=== PATIENT | female | born 1990 | race Caucasian/White ===

== ENCOUNTER 2024-05-13 00:09 | Emergency (ER) | payer OTHER, SELFPAY ==
[2024-05-13 00:14] VITALS: BP 125/75
--- NOTE | 2024-05-13 01:17 | ED.GENMED ---
History of Present Illness
General
Chief Complaint: Headache
Source: patient
Exam Limitations: none
Time Seen by Provider: 05/13/24 00:49
History of Present Illness
History of Present Illness:
This is a 33 year old female that comes in with c/o a Migraine since last Thursday. States that she does not have a history of headaches. States that her headache is constant. States that she went to [facility] on Thursday and they gave her
Benadryl, Reglan, Toradol and Valium. Patient also saw her PCP and he gave her Imitrex and this is not helping. States that she is nauseated and had diarrhea. States that she also feels dizzy like she is spinning. States that she also had some
chest discomfort today. Denies any fever, chills, SOB, abd pain, vomiting, urinary burning.
Past History
Past History
ED Past Medical History: None; Negative Asthma, HTN, Hypercholesterolemia or NIDDM
ED Past Surgical History: , Tonsilectomy and Other (Lesion removed from around Colon Benign)
Social History
Tobacco: Smoker
Alcohol: None
Personal: Single
Living: with family
Employment: Employed
Review of Systems
Review of Systems
All Other Systems: ROS reviewed and negative except as documented in HPI and ROS
Constitutional: Reports no symptoms; Denies fever or chills
EENT: Reports no symptoms
Respiratory: Reports no symptoms; Denies cough or trouble breathing
Cardiac: Reports chest pain
ABD/GI: Reports nausea and diarrhea; Denies abdominal pain or vomiting
: Reports no symptoms; Denies dysuria, frequency or urgency
Musculoskeletal: Reports no symptoms
Skin: Reports no symptoms
Neurological: Reports dizzy and headache
Psychiatric: Reports no symptoms
Phy Exam
General Physical Exam
General Presentation: no apparent distress
General age: appears stated age
General Skin: warm and dry
General Habitus: normal
General Mental: alert
General Hydration: appears well hydrated
ENT Exam
ENT Exam: TM's normal, pharynx normal and neck supple
Eye Exam
Eye Exam: EOMI
Cardiovascular Exam
Cardiovascular Exam: regular rate/rhythm, no edema, no murmur and normal peripheral pulses
Pulmonary Exam
Pulmonary Exam: lungs clear, no respiratory distress, no rales, chest non tender, no crackles, no rhonchi, no wheezing and no cough
Gastrointestinal Exam
Gastrointestinal Exam: normal bowel sounds, non tender, soft, no organomegaly, no pulsatile mass and non distended
Musculoskeletal Exam
Musculoskeletal Exam: full ROM and no edema
Skin Exam
Skin Exam: normal color, warm/dry, no rash and no petechia
Psychiatric Exam
Psychiatric Exam: normal mood/affect
Course
Orders/Labs/Results
Orders:
Orders
05/13/24 01:15
0.9% Sodium Chloride 1000 ml [Nss] 1,000 ml IV BOLUS
Acetaminophen [Tylenol] 1,000 mg PO NOW STA
Dexamethasone Sod Phosphate [Decadron] 20 mg IV NOW STA
Diphenhydramine [Benadryl] 25 mg IV NOW STA
Ketorolac [Toradol] 30 mg IV NOW STA
Prochlorperazine [Compazine] 5 mg IV NOW STA
05/13/24 01:16
Test Result ONCE
05/13/24 01:17
CT Head W/o Iv Contrast Urgent
Comment:
Reason For Exam: Headache since last Thursday
05/13/24 01:20
Electrocardiogram (*1) Urgent
Reason for Study: Chest Pain
EKG- Treatment ONCE
05/13/24 01:27
COVID-19 Antigen Urgent
Source: Nasal Swab
Complete Blood Count/With Diff Urgent
Comprehensive Metabolic Panel Urgent
HCG, Serum Qualitative Screen Urgent
Troponin I Urgent
Abnormal Lab Results
05/13/24
01:27
WBC 10.9 H 10^3/uL
(4.8-10.8)
RBC 3.69 L 10^6/uL
(4.20-5.40)
Hgb 11.8 L g/dL
(12.0-16.0)
Hct 33.7 L %
(37.0-47.0)
MCH 32.0 H pg
(27.0-31.0)
Absolute Lymphs (auto) 3.5 H 10^3/uL
(1.2-3.4)
Absolute Monos (auto) 0.8 H 10^3/uL
(0.1-0.6)
05/13/24 01:27
05/13/24 01:27
H/H slightly low. HCG negative. COVID negative. Troponin <0.012
Vital Signs
Initial and Last Documented VS:
Initial Vital Signs
Temp Pulse Resp BP Pulse Ox
98.6 F 85 17 125/75 99
05/13/24 00:14 05/13/24 00:14 05/13/24 00:14 05/13/24 00:14 05/13/24 00:14
Last Documented Vital Signs
Temp Pulse Resp BP Pulse Ox
98.6 F 70 18 109/70 99
05/13/24 00:14 05/13/24 02:53 05/13/24 02:53 05/13/24 02:53 05/13/24 02:53
MDM/Problems Addressed
Differential Diagnosis Includes:
Migraine,
MDM/Problems Addressed:
This is a 33 year old female that comes in with c/o migraine. States that she doesn't have a history of Migraines but she has had a headache since Thursday and it is constant. Patient was seen at [facility] on Thursday. States that she was also
seen by her PCP.
Will get labs, Medicate for headache pain and CT scan.
Back into see patient. Explained that the CT of her head is normal. Blood work is normal and she is negative for COVID. Patient states that she is feeling better. Explained that she was given a steroid and this will stay in her system for a few
days. This will help decrease any inflammation. Patient can use Tylenol and Ibuprofen for pain. Patient to follow up with the family doctor. Return with any concerns.
Chronic conditions affecting care:
NA
Acute Exacerbation and/or Progression of Chronic Illness:
NA
*Radiology
Radiology exam reviewed: radiology read reviewed (CT head night hawk- No acute intracranial abnormality. NO acute territorial infarct, hemorrhage, mass effect, or midline shift. )
*Pulse Oximetry
Patient hypoxic: no
*EKG
Interpreted by ED Provider?: Yes
Heart Rate: 62
Rate: normal
Rhythm: sinus arrhythmia
[place]: normal axis
Interval: normal interval
QRS Pattern: normal QRS
Ischemia: T-wave inversion (aVR, V1, V2, Checked by Dr. Marshall)
*Tug Hand Interpretation
Rate: Tug Hand- N/A
*Critical Care Note
Total Time (30-74mins, 75-104mins- exclusive of procedures): Not Applicable
ED Attending Note
-
Portions of this chart may have been created with voice recognition software.� Occasional wrong word or��sound alike� substitutions may have occurred due to the inherent limitations of voice recognition software.
Discharge Plan
Departure
Patient Disposition: Home (Routine Discharge)
Date of Disposition: 05/13/24
Time of Disposition: 02:49
Patient with high blood pressure during this ER visit?: No
Condition: Good
Covid-19: Not Applicable
Discharge Problem:
Headache
Instructions: Headache, Adult (DC)
Prescriptions:
No Action
No Meds [No Current Medications]
Referrals:
Jagjit Moreno DO [Family Provider] - Call in 1-3 days for appt
Stand Alone Forms: Return to Work
Activity Restrictions/Additional Instructions:
As discussed, your CT of the head is normal and your blood work is normal. You are negative for COVID. Please increase your water intake to 8-8oz glasses daily. You may Use Tylenol and Ibuprofen for pain. Follow up with the family doctor for
recheck. You have been given a steroid here that will help decrease any inflammation and decrease the headache pain. You may also want to try and over the counter Zyrtec or Claritin as this could also be allergy related. IF YOU HAVE ANY OTHER
CONCERNS PLEASE RETURN TO THE EMERGENCY ROOM.
Interventions
Interventions:
*Risk Screen - Suicide Last Done: 05/13/24 00:14
*General Assessment Last Done: 05/13/24 00:14
*Neglect/Abuse Screening Last Done: 05/13/24 00:14
ED- Fall Risk Assessment Last Done: 05/13/24 02:31
*ED COVID-19 Vaccine History Last Done: 05/13/24 00:14
ED- Neurological Assessment Last Done: 05/13/24 01:41
Discharge Date and Time
Print Language: SERBIAN
[2024-05-13] MEDS: NSS 1000 IV (01:29)
[2024-05-13] MEDS: TORADOL 30 MG IV (01:29)
[2024-05-13] MEDS: BENADRYL 25 MG IV (01:31)
[2024-05-13] MEDS: DECADRON 20 MG IV (01:32)
[2024-05-13] MEDS: COMPAZINE 5 MG IV (01:34)
[2024-05-13] MEDS: TYLENOL 1000 MG PO (01:36)
[2024-05-13 01:38] LABS: % Basophils 0.6 % (0-2); % Eosinophils 2.5 % (0-6); % Immature Granulocytes 0.4 % (0-0.5); % Lymphocytes 32.4 % (20.5-51.1); % Monocytes 7.4 % (1.7-9.3); % Neutrophils 56.7 % (42.2-75.2); Absolute Basophils 0.1 10^3/uL (0-0.2); Absolute Eosinophils 0.3 10^3/uL (0-0.7); Absolute Lymphocytes 3.5 10^3/uL (1.2-3.4); Absolute Monocytes 0.8 10^3/uL (0.1-0.6); Absolute Neutrophils 6.2 10^3/uL (1.4-6.5); Hematocrit 33.7 % (37.0-47.0); Hemoglobin 11.8 g/dL (12.0-16.0); Mean Corpuscular Volume 91.3 fL (81.0-99.0); Mean Platelet Volume 10.4 fL (7.4-10.4); Nucleated Red Blood Cells % 0 %; Platelet Count 231 10^3/uL (130-400); Red Blood Cell Count 3.69 10^6/uL (4.20-5.40); White Blood Cell Count 10.9 10^3/uL (4.8-10.8)
[2024-05-13 01:51] LABS: ALT (SGPT) 14 U/L (0-35); AST (SGOT) 23 U/L (14-36); Albumin 4.6 g/dl (3.5-5.0); Alkaline Phosphatase 55 U/L (38-126); Blood Urea Nitrogen 10 mg/dl (7-17); Calcium 9.5 mg/dl (8.4-10.2); Carbon Dioxide 26 mmol/L (22-30); Chloride 105 mmol/L (98-107); Glucose 98 mg/dl (70-99); Sodium 141 mmol/L (135-145); Total Bilirubin 0.5 mg/dl (0.2-1.3); Total Protein 6.7 g/dl (6.3-8.2); eGFR > 60.00
[2024-05-13 02:02] LABS: COVID-19 Antigen Negative (Negative); HCG, Serum Qualitative Screen Negative
[2024-05-13 02:37] LABS: Troponin I < 0.012 ng/ml
[2024-05-13 02:53] VITALS: BP 109/70
== END 2024-05-13 03:11 | disposition home or self-care (01) ==
LOC: EMR 00:09
PROVIDERS: Clinical Nurse Specialist Family Health; EMERGENCY PHYSICIAN Student in an Organized Health Care Education/Training Program; FAMILY PHYSICIAN Family Medicine
DX: R51.9 Headache, unspecified (principal); R42 Dizziness and giddiness; R11.0 Nausea; R19.7 Diarrhea, unspecified; R07.89 Other chest pain; Z11.52 Encounter for screening for COVID-19; F17.200 Nicotine dependence, unspecified, uncomplicated; Z88.1 Allergy status to other antibiotic agents; Z88.5 Allergy status to narcotic agent; Z88.0 Allergy status to penicillin; Z88.2 Allergy status to sulfonamides
CPT/HCPCS: 99284; 96374; 96375 ×3; 96361; 70450; 80053; 84484; 84703; 85025; 87811; 93005